=== PATIENT | male | born 1955 | race American Indian/Alaskan Native ===

== ENCOUNTER 2024-06-26 13:15 | Emergency (ER) | payer OTHER ==
[~2024-06-26] VITALS: Ht 165.1 cm; Wt 88.9 kg
[2024-06-26] MEDS ORDERED: COZAAR100 MG PO (13:35)
[2024-06-26] MEDS ORDERED: NORVASC10 MG PO (13:35)
[2024-06-26] MEDS ORDERED: METFORMIN HCL500 M2 PO (13:36)
[2024-06-26] MEDS ORDERED: VENTOLIN HFA18 GM INH (13:36)
[2024-06-26] MEDS ORDERED: COREG25 MG PO (13:36)
[2024-06-26] MEDS ORDERED: WIXELA 100-501 EACH INH (13:36)
[2024-06-26] MEDS ORDERED: LIPITOR40 MG PO (13:36)
[2024-06-26] MEDS ORDERED: ALBUTEROL/IPRATROPIUM 3 ML NEB INH ONE (13:45)
[2024-06-26] MEDS ORDERED: ACETAMINOPHEN 500 MG TAB PO ONE (13:45)
[2024-06-26] MEDS ORDERED: predniSONE 20 MG TAB PO ONE (13:45)
[2024-06-26] MEDS ORDERED: IBUPROFEN 400 MG TAB PO ONE (14:00)
[2024-06-26] MEDS ORDERED: PREDNISONE20 MG PO (14:13)
[2024-06-26 14:20] VITALS: BP 131/75
== END 2024-06-26 14:20 | disposition home or self-care (01) ==
LOC: ED 13:15
DX: J45.909 Unspecified asthma, uncomplicated (principal); E11.9 Type 2 diabetes mellitus without complications; Z88.8 Allergy status to other drugs, medicaments and biological substances; Z79.899 Other long term (current) drug therapy; Z79.84 Long term (current) use of oral hypoglycemic drugs
CPT/HCPCS: 71045; 94640; 99285-25; A9270; J7512